=== PATIENT | male | born 1965 | race Caucasian/White ===

== ENCOUNTER 2019-08-13 04:51 | Emergency (ER) | payer OTHER ==
[~2019-08-13] VITALS: Ht 172.7 cm; Wt 90.7 kg
[2019-08-13] MEDS ORDERED: CYCLOBENZAPRINE5 M3 PO (06:07)
== END 2019-08-13 06:39 | disposition home or self-care (01) ==
LOC: ED 04:51
DX: S29.011A Strain of muscle and tendon of front wall of thorax, initial encounter (principal); X58.XXXA Exposure to other specified factors, initial encounter; Y93.89 Activity, other specified; Y92.89 Other specified places as the place of occurrence of the external cause; Y99.8 Other external cause status

== ENCOUNTER 2020-11-27 14:28 | Emergency (ER) | payer OTHER ==
[~2020-11-27] VITALS: Ht 170.1 cm; Wt 93.9 kg
[~2020-11-27 14:28] MED LIST: CYCLOBENZAPRINE5 M3 PO
[2020-11-27] MEDS ORDERED: AUGMENTIN 875875 MG PO (15:04)
== END 2020-11-27 15:17 | disposition home or self-care (01) ==
LOC: ED 14:28
DX: S61.051A Open bite of right thumb without damage to nail, initial encounter (principal); L08.9 Local infection of the skin and subcutaneous tissue, unspecified; W55.01XA Bitten by cat, initial encounter; Y93.89 Activity, other specified; Y92.89 Other specified places as the place of occurrence of the external cause; Y99.8 Other external cause status

== ENCOUNTER 2021-12-06 09:59 | Emergency (ER) | payer OTHER ==
[~2021-12-06 09:59] MED LIST changes: +AUGMENTIN 875875 MG PO
[2021-12-06 10:09] VITALS: BP 123/74
[2021-12-06 10:33] LABS: BASO % 0.3 % (0.0-1.0); EOS # 0.2 10*3/uL (0.0-0.4); EOS % 3.5 % (1.0-4.0); HEMATOCRIT 42.6 % (42.0-52.0); LYMPH # 1.7 10*3/uL (1.3-4.4); LYMPH % 25.3 % (27.0-41.0); MEAN CELL VOLUME 90.3 fl (80.0-94.0); MEAN CORPUSCULAR HGB 31.8 pg (27.0-31.0); MEAN CORPUSCULAR HGB CONC 35.2 g/dl (33.0-37.0); MEAN PLATELET VOLUME 10.2 fl (9.6-12.3); MONO # 0.8 10*3/uL (0.1-1.0); MONO % 10.9 % (3.0-9.0); NEUT # 4.1 10*3/uL (2.3-7.9); NEUT % 59.7 % (47.0-73.0); PLATELET COUNT AUTOMATED 193 10*3/uL (130-400); RED BLOOD COUNT 4.72 10*6/uL (4.50-5.90); RED CELL DISTRI WIDTH 12.2 % (0-14.5); WHITE BLOOD COUNT 6.9 10*3/uL (4.8-10.8)
[2021-12-06 10:46] LABS: ACT PARTIAL THROMBO TIME 24.4 SECONDS (20.0-32.1)
[2021-12-06 10:49] LABS: ALBUMIN 3.1 gm/dl (3.1-4.5); ALKALINE PHOSPHATASE 133 U/L (45-117); BUN 22 mg/dl (7-24); CHLORIDE 104 mmol/L (98-107); CREATININE 1.17 mg/dL (0.70-1.30); POTASSIUM 4.5 mmol/L (3.5-5.1); SGOT/AST 18 IU/L (3-35); SGPT/ALT 26 U/L (12-78); SODIUM 134 mmol/L (136-145); TOTAL PROTEIN 6.8 gm/dL (6.4-8.2)
== END 2021-12-06 11:22 | disposition admitted as inpatient to this hospital (09) ==
LOC: ED 09:59 → EDHOLD 11:05 → ED 11:22
PROVIDERS: Emergency Medicine
DX: R07.9 Chest pain, unspecified (principal)

== ENCOUNTER 2024-06-06 11:12 | Emergency (ER) | payer OTHER ==
[~2024-06-06] VITALS: Ht 170.1 cm; Wt 93.0 kg
[2024-06-06] MEDS ORDERED: LYRICA200 M1 PO (11:48)
[2024-06-06] MEDS ORDERED: METOPROLOL SUC100 M1 PO (11:48)
[2024-06-06] MEDS ORDERED: LIPITOR80 MG PO (11:48)
[2024-06-06] MEDS ORDERED: RANOLAZINE ER500 MG PO (11:49)
[2024-06-06] MEDS ORDERED: EFFIENT10 M1 PO (11:49)
[2024-06-06] MEDS ORDERED: TAMSULOSIN HCL0.4 MG PO (11:50)
[2024-06-06] MEDS ORDERED: TRAZODONE100 MG PO (11:51)
[2024-06-06] MEDS ORDERED: NITROSTAT0.3 M1 SL (11:51)
[2024-06-06] MEDS ORDERED: AMOX-CLAV 875-1 EACH PO (12:05)
[2024-06-06] MEDS ORDERED: Amoxicillin/Clavulanate Pota 875 MG TAB PO ONE (12:10)
[2024-06-06] MEDS ORDERED: Bacitracin Zinc 14 GM TUBE T ONE (12:30)
== END 2024-06-06 12:32 | disposition home or self-care (01) ==
LOC: ED 11:12
DX: S61.431A Puncture wound without foreign body of right hand, initial encounter (principal); E11.9 Type 2 diabetes mellitus without complications; W55.01XA Bitten by cat, initial encounter; Y93.89 Activity, other specified; Y92.89 Other specified places as the place of occurrence of the external cause; Y99.8 Other external cause status